=== PATIENT | male | born 1955 | race African-American/Black ===

== ENCOUNTER 2016-11-15 22:22 | Emergency (ER) | payer MEDICARE, MEDICAID ==
[2016-11-15] MEDS: IPRATROPIUM/ALBUTEROL (0.5MG/3MG) NEB INH ONE (22:45)
--- NOTE | 2016-11-15 22:58 | Emergency Department Record ---
History of Present Illness - General Chief complaint: Lower Extremity Pain Stated complaint: "lump on leg" Time Seen by Provider: 11/15/16 22:50 Source: Patient Mode of Arrival: Ambulatory Limitations: No limitations - History of Present Illness Initial comments: 61 yo male presents with a lump on his right thigh area. He noticed a possible lump in his inner thigh. No fevers or chills. NO redness, blisters or pus. No injuries. No changes in urination. He reported some diarrhea earlier today. No new weakness or numbness or tingling. No changes of the scrotum or penis. MD Complaint: Extremity pain Onset/Timin -: Days(s) Location: Right History of Same: No Radiation: None Severity scale (1-10): 10 Quality: Other Consistency: Other Improves with: Other Worsens with: Other Associated Symptoms: Other - Related Data Home Medications Medication Instructions Recorded Confirmed Last Taken Albuterol Sulfate [Ventolin Hfa] 1 - 2 puff IH .EVERY 4-6 HOURS PRN 07/22/1509/28/16 Amlodipine Besylate [Norvasc] 5 mg PO QHS 07/22/15 09/28/16 09/28/16 Balsalazide Disodium 2,250 mg PO BID 07/22/15 09/28/16 09/28/16 Ciclopirox/Ure/Camph/Menth/Euc 34.6 ml TP DAILY 07/22/15 09/28/16 09/28/16 [Ciclodan 8% Kit] Cyanocobalamin (Vitamin B-12) 1,000 mcg PO DAILY 07/22/15 09/28/16 09/28/16 [Vitamin B-12] Diphenhydramine HCl [Benadryl] 25 mg PO Q6H 07/22/15 09/28/16 09/28/16 Docusate Sodium [Colace] 100 mg PO BID 07/22/15 09/28/16 09/28/16 Doxycycline Hyclate [Doxycycline] 100 mg PO BID 07/22/15 09/28/16 09/28/16 Fentanyl 50 mcg TD Q72H 07/22/15 09/28/16 09/28/16 Ferrous Sulfate 325 mg PO DAILY 07/22/15 09/28/16 09/28/16 Fluphenazine HCl 2.5 mg IJ WEEKLY 07/22/15 09/28/16 09/28/16 Fluticasone Propionate [Flovent 50 mcg IH BID 07/22/15 09/28/16 09/28/16 Diskus] Furosemide [Lasix] 40 mg PO DAILY 07/22/15 09/28/16 09/28/16 Gabapentin [Neurontin] 100 mg PO QHS 07/22/15 09/28/16 09/28/16 Hyoscyamine Sulfate [Levsin-Sl] 0.125 mg SL Q4H PRN 07/22/15 09/28/16 09/28/16 Ibuprofen [Motrin] 800 mg PO Q8H PRN 07/22/15 09/28/16 09/28/16 Lamotrigine 100 mg PO QAM 07/22/15 09/28/16 09/28/16 Levothyroxine Sodium [Synthroid] 50 mcg PO DAILY 07/22/15 09/28/16 09/28/16 Lisinopril/Hydrochlorothiazide 1 tab PO DAILY 07/22/15 09/28/16 09/28/16 [Lisinopril-Hctz 20-25 mg Tab] Lorazepam [Ativan] 2 mg PO BID PRN 07/22/15 09/28/16 09/28/16 Metformin HCl 500 mg PO DAILY 07/22/15 09/28/16 09/28/16 Omeprazole Magnesium [Prilosec Otc] 40 mg PO BID 07/22/15 09/28/16 09/28/16 Propranolol HCl 20 mg PO BID 07/22/15 09/28/16 09/28/16 Trihexyphenidyl HCl 5 mg PO TID 07/22/15 09/28/16 09/28/16 Vitamin E 400 unit PO DAILY 07/22/15 09/28/16 09/28/16 Clonazepam [Clonazepam] 1 mg PO TID PRN 04/20/16 09/28/16 09/28/16 Hydrocodone/Acetaminophen 1 tab PO Q6HR PRN 04/20/16 09/28/16 09/28/16 [Hydrocodon-Acetaminophn 10-325] Tramadol HCl [Tramadol HCl] 1 tab PO Q4HR PRN 04/20/16 09/28/16 09/28/16 Previous Rx's Medication Instructions Recorded Orphenadrine Citrate [Norflex] 100 mg PO Q12H PRN #20 tab 09/16/16 Allergies Allergy/AdvReac Type Severity Reaction Status Date / Time diphenhydramine HCl Allergy PT UNSURE Verified 09/28/16 17:24 [From Benadryl] OF REACTION divalproex sodium Allergy PT UNSURE Verified 09/28/16 17:24 [From Depakote] OF REACTION haloperidol [From Haldol] Allergy BEHAVIORAL Verified 09/28/16 17:24 CHANGES haloperidol lactate Allergy BEHAVIORAL Verified 09/28/16 17:24 [From Haldol] CHANGES olanzapine [From Zyprexa] Allergy BEHAVIORAL Verified 09/28/16 17:24 CHANGES quetiapine fumarate Allergy BEHAVIORAL Verified 09/28/16 17:24 [From Seroquel] CHANGES ziprasidone HCl [From Geodon] Allergy PT UNSURE Verified 09/28/16 17:24 OF REACTION ziprasidone mesylate Allergy PT UNSURE Verified 09/28/16 17:24 [From Geodon] OF REACTION ibuprofen [From Motrin] AdvReac NAUSEA Verified 09/28/16 17:24 Travel Screening - Travel/Exposure Within Last 30 Days Have you traveled within the last 30 days?: No - Travel/Exposure Within Last Year Have you traveled outside the [place] in the last year?: No - Additonal Travel Details Have you been exposed to anyone with a communicable illness?: No - Travel Symptoms Symptom Screening: None Review of Systems Constitutional: Denies: Chills, Fever, Malaise, Night sweats, Weakness Eyes: Denies: Eye discharge ENT: Denies: Congestion Respiratory: Reports: Wheezes. Denies: Cough, Dyspnea, Hemoptysis, Stridor Cardiovascular: Denies: Chest pain, Palpitations, Syncope Endocrine: Denies: Fatigue Gastrointestinal: Reports: Diarrhea (earlier today). Denies: Abdominal pain, Nausea, Vomiting Genitourinary: Denies: Dysuria, Frequency, Hematuria Musculoskeletal: Reports: Arthralgia (chronic bilateral hip pain). Denies: Back pain, Joint swelling, Myalgia, Neck pain Skin: Reports: Other (lump). Denies: Bruising, Change in color, Rash Neurological: Denies: Headache Psychiatric: Denies: Anxiety Hematological/Lymphatic: Denies: Anemia, Blood Clots, Easy bleeding, Easy bruising Past Medical History - SOCIAL HISTORY Smoking Status: Light tobacco smoker (<10/day) Alcohol Use: None Drug Use: None - RESPIRATORY Hx Respiratory Disorders: No - CARDIOVASCULAR Hx Cardio Disorders: Yes Hx Hypertension: Yes - NEURO Hx Neuro Disorders: No - GI Hx GI Disorders: No - Hx Genitourinary Disorders: No - ENDOCRINE Hx Endocrine Disorders: Yes Hx Diabetes: Yes - MUSCULOSKELETAL Hx Musculoskeletal Disorders: Yes Hx Arthritis: Yes Comment:: DJD - PSYCH Hx Psych Problems: Yes Comment:: Biploar - HEMATOLOGY/ONCOLOGY Hx Hematology/Oncology Disorders: No Family Medical History Any Significant Family History?: No Physical Exam - General General Appearance: Alert, Oriented x3, Cooperative, No acute distress Limitations: No limitations - Head Head exam: Normal inspection. negative: Atraumatic - Eye Eye exam: Normal appearance, PERRL. negative: Conjunctival injection, Scleral icterus - ENT ENT exam: Normal exam Ear exam: Normal external inspection Nasal Exam: Normal inspection Mouth exam: Normal external inspection Teeth exam: Normal inspection Throat exam: Normal inspection - Neck Neck exam: Normal inspection, Full ROM. negative: Tenderness - Respiratory Respiratory exam: Decreased breath sounds, Wheezes (few difuse wheezes, non labored). negative: Normal lung sounds bilaterally - Cardiovascular Cardiovascular Exam: Regular rate, Normal rhythm, Normal heart sounds - GI/Abdominal GI/Abdominal exam: Soft, Other (Morbidly obese). negative: Guarding, Hernia, Rebound, Rigid, Tenderness - Rectal Rectal exam: Deferred - exam: Normal inspection, Other (No mass or skin changes). negative: Circumcision, Scrotal swelling, Testicular tenderness, Urethral discharge - Extremities Extremities exam: Normal inspection, Full ROM, Normal capillary refill, Other ( Medial upper thich he has area that may be a lipoma, it is soft, mobile, not red or warm, no hernia, it is not tender to palpation. It is the area he locates as the newe lump. No sign of infection. ). negative: Calf tenderness , Joint swelling, Pedal edema, Tenderness - Back Back exam: Reports: Normal inspection, Full ROM. Denies: CVA tenderness (R), CVA tenderness (L), Muscle spasm, Paraspinal tenderness, Rash noted, Tenderness , Vertebral tenderness - Neurological Neurological exam: Alert, Normal gait, Oriented X3, Reflexes normal - Psychiatric Psychiatric exam: Normal affect, Normal mood - Skin Skin exam: Dry, Intact, Normal color, Warm Course Vital Signs 11/15/16 22:27 Temperature 98.2 F Pulse Rate 77 Respiratory 32 H Rate Blood Pressure 157/98 Pulse Ox 93 L - Reevaluation(s) Reevaluation #1: I discussed the physical findings with the patient No sign of infection or hernia It may be a lipoma I recommended close follow up and recheck with his PCP this week Return if it enlarges, fever, or any new symptoms 11/15/16 23:01 Disposition Disposition: Discharge Clinical Impression: Mass of right thigh Disposition: Home, Self-Care Condition: (1) Good Instructions: Lipoma (ED) Additional Instructions: Call your doctor for a recheck of the area on the thigh Return if it is red, warm, swollen or any new concerns Forms: Patient Portal Access Time of Disposition: 23:03
[2016-11-15] MEDS: KETOROLAC 30 MG/ML VIAL IM ONE (23:22)
== END 2016-11-16 00:05 | disposition home or self-care (01) ==
LOC: ER 22:22
DX: R22.41 Localized swelling, mass and lump, right lower limb (principal); R19.7 Diarrhea, unspecified; R06.2 Wheezing; F17.210 Nicotine dependence, cigarettes, uncomplicated
CPT/HCPCS: 94640; 96372; 99283